=== PATIENT | male | born 1990 | race Two or more races ===

== ENCOUNTER 2021-05-26 19:12 | Emergency (ER) | payer SELFPAY ==
[~2021-05-26] VITALS: Ht 185.4 cm; Wt 127.0 kg
[2021-05-26 19:45] VITALS: BP 146/109
--- NOTE | 2021-05-26 19:45 | NUR ---
NARCISA COMPLAINING OF OVERDOSE AT [place], A/O X4. SWEATING PROFUSELY, ANXIOUS, NAUSEA/VOMITING X2.
[2021-05-26] MEDS ORDERED: ONDANSETRON HCL/PF 4 MG/2 ML VIAL ONE (19:47)
[2021-05-26] MEDS ORDERED: ONDANSETRON 4 MG TAB.RAPDIS ONE (19:49)
--- NOTE | 2021-05-26 19:52 | NUR ---
ADMINISTERED ZOFRAN FOR NAUSEA/VOMITING.
[2021-05-26] MEDS ORDERED: ONDANSETRON 4 MG TAB.RAPDIS SL ONE (20:00)
[2021-05-26] MEDS ORDERED: NALO4SPR BNOSTRILS (20:55)
== END 2021-05-26 21:53 | disposition home or self-care (01) ==
LOC: ER 19:14
DX: T40.601A Poisoning by unspecified narcotics, accidental (unintentional), initial encounter (principal); R11.2 Nausea with vomiting, unspecified; F17.200 Nicotine dependence, unspecified, uncomplicated; Z60.2 Problems related to living alone; Y92.89 Other specified places as the place of occurrence of the external cause
CPT/HCPCS: 99291; Q0162; J2405